=== PATIENT | male | born 1965 | race Caucasian/White ===

== ENCOUNTER 2017-05-23 18:54 | Emergency (ER) | payer SELFPAY ==
[~2017-05-23] VITALS: Ht 175.3 cm; Wt 65.8 kg
[2017-05-23 19:22] VITALS: BP 109/81
[2017-05-23] MEDS ORDERED: LIDOCAINE 1% HCL (LOCAL ANESTH.) INJ 20ML MDV ONE (22:27)
[2017-05-23] MEDS ORDERED: cefTRIAXone SOD 1,000 MG VL IM ONE (23:00)
[2017-05-24] MEDS ORDERED: LIDOCAINE 1% HCL (LOCAL ANESTH.) INJ 20ML MDV IJ ONE (00:30)
== END 2017-05-23 23:20 | disposition home or self-care (01) ==
LOC: ER 18:58
DX: L03.012 Cellulitis of left finger (principal); F17.210 Nicotine dependence, cigarettes, uncomplicated
CPT/HCPCS: 10060; 96372; 99283; J0696; J2001